=== PATIENT | female | born 1980 | race Caucasian/White ===

== ENCOUNTER 2020-08-25 19:23 | Emergency (ER) | payer OTHER, SELFPAY ==
[2020-08-25 19:37] VITALS: BP 159/87; PULSE 85; RESP 16; TEMP 36.3; O2SAT 100; BMI 49.6
[2020-08-25 21:04] VITALS: PULSE 82; RESP 24; O2SAT 98
[2020-08-25] MEDS: MECLIZINE HCL 12.5 MG TABLET 25 MG PO (21:07)
[2020-08-25] MEDS: SODIUM CHLORIDE 0.9% 1,000 ML 1000 ML IV (21:07)
[2020-08-25 21:22] LABS: Alanine Aminotransferase 34 IU/L (<35); Albumin 4.2 g/dL (3.5-5.0); Albumin Globulin Ratio 1.2 (1.0-2.8); Alkaline Phosphatase 92 U/L (38-126); Aspartate Aminotransferase 28 IU/L (14-36); BUN Creatinine Ratio 28.3 (6-22); Bilirubin Total 0.3 mg/dL (0.2-1.3); Blood Urea Nitrogen 17 mg/dL (7-17); Calcium 9.8 mg/dL (8.4-10.2); Carbon Dioxide 25 mmol/L (22-32); Chloride 108 mmol/L (98-107); Estimated Glomerular Filt Rate > 60.0 mL/min (>60); Globulin 3.4 g/dL (1.7-4.1); Glucose 106 mg/dL (70-100); HEMOLYSIS 20 (0-50); Sodium 140 mmol/L (137-145); Total Protein 7.6 g/dL (6.3-8.2)
[2020-08-25 21:30] VITALS: BP 131/63; PULSE 79; RESP 25
[2020-08-25 21:37] LABS: Add Manual Diff / Slide Review NO; Basophils Absolute Auto 0 /uL (0-100); Basophils Percent Auto 0.4 % (0-2); Eosinophils Absolute Auto 300 /uL (0-450); Eosinophils Percent Auto 3.8 % (2-4); Hematocrit 38.5 % (36-46); Hemoglobin 12.8 g/dL (12.0-16.0); Lymphocytes Absolute Auto 2900 /uL (1100-4500); Lymphocytes Percent Auto 32.4 % (25-40); Mean Corpuscular HGB Conc 33.1 % (30-36); Mean Corpuscular Hemoglobin 29.4 PG (26-34); Mean Corpuscular Volume 88.7 fL (80-100); Monocytes Absolute Auto 800 /uL (0-900); Monocytes Percent Auto 8.5 % (3-14); Neutrophils Absolute Auto 4900 /uL (1500-7000); Neutrophils Percent Auto 54.9 % (50-75); Platelet Count 304 X10^3/uL (150-400); Red Blood Cell Count 4.34 X10^6/uL (4.0-5.2); Red Cell Distribution Width 13.4 % (11.6-14.8); White Blood Cell Count 8.9 X10^3/uL (4.5-11.0)
--- NOTE | 2020-08-25 23:39 | ED_ITS ---
HPI - General Adult General Chief complaint: Dizziness Stated complaint: dizziness past week Time Seen by Provider: 08/25/20 20:53 History of Present Illness HPI narrative: 39-year-old woman with a history of alcohol use disorder, history of seizures currently complains of vertigo when turning her head. This has been bothering her all week seems like it is worse at work or when there is more lytes or distractions. Bothers her when she is driving. She feels almost like she is going to pass out or fall when it happens. She does describe some blurry vision that then resolves. It has been waxing and waning and was worse overall today. Prior workup with the seizure history apparently included neurology and Cardiology consultations. When they were unable to cause induced seizures the recommendation was to not continue with any seizure medications. Related Data Home Medications Medication Instructions Recorded Confirmed loratadine-pseudoephedrine 1 tab PO Q12H PRN 08/25/20 08/25/20 [Allergy Relief-D (loratadine)] oxycodone-acetaminophen 1 tab PO Q6HR PRN 08/25/20 08/25/20 Allergies Allergy/AdvReac Type Severity Reaction Status Date / Time From VICODIN AdvReac Mild HEADACHE Uncoded 08/25/20 20:47 Review of Systems Review of Systems Narrative: Pertinent positive and negative findings as per HPI Remainder of review of systems is otherwise unremarkable for Constitutional: Fevers, chills, weakness ENT: No sore throat, neck pain, ear pain CV: Chest pain, palpitations, dyspnea on exertion Respiratory: Cough, wheeze, dyspnea GI: vomiting, diarrhea MS: Muscle weakness, numbness, Patient History Medical History (Updated 08/26/20 @ 00:01 by Vickie Lutz MD) Seizures Exam Narrative Exam Narrative: General: Morbidly obese but otherwise Healthy appearing, in no acute distress. Able to give a complete and coherent history. HEENT: Moist mucous membranes, normal sclera with reactive pupils, no nystagmus with positional changes Respiratory: Lungs are clear to auscultation, no wheezing no rales no rhonchi. Full and symmetrical air movement Cardiac: Regular rate and rhythm no murmurs no bruits Abdomen: Soft, nontender, good bowel tones, no flank pain Skin: Warm and dry, no rashes Neurologic: Grossly neurologically intact with no obvious asymmetries or abnormalities Extremities: No trauma, well perfused Psych: Cooperative, appropriate insight and affect Initial Vital Signs Initial Vital Signs: Vital Signs Temperature 97.4 F L 08/25/20 19:37 Pulse Rate 85 08/25/20 19:37 Respiratory Rate 16 08/25/20 19:37 Blood Pressure 159/87 H 08/25/20 19:37 Pulse Oximetry 100 08/25/20 19:37 Course Orders Ordered: ED Orders 08/25/20 20:55 Comprehensive Metabolic Panel Stat 08/25/20 21:25 Complete Blood Count AUTO DIFF Stat Discontinued Medications Sodium Chloride (Normal Saline 0.9%) 1,000 mls @ 1,000 mls/hr IV BOLUS ONE Stop: 08/25/20 21:59 Last Infusion: 08/25/20 22:08 Dose: 0 mls/hr Documented by: Admin: 08/25/20 21:07 Dose: 1,000 mls/hr Documented by: MILADY Meclizine HCl (Meclizine Hcl 12.5 Mg Tablet) 25 mg PO NOW ONE Stop: 08/25/20 21:02 Last Admin: 08/25/20 21:07 Dose: 25 mg Documented by: MILADY Vital Signs Vital signs: Vital Signs - 8 hr 08/25/20 19:37 08/25/20 21:04 08/25/20 21:30 Temperature 97.4 F L Pulse Rate 85 82 79 Respiratory Rate 16 24 25 H Blood Pressure 159/87 H 131/63 Pulse Oximetry 100 98 Medical Decision Making Medical Records Medical records reviewed: Yes I reviewed the patient's medical records. Lab Data Lab results reviewed: Yes I reviewed the patient's lab results. Result diagrams: 08/25/20 21:25 08/25/20 20:55 Labs: Lab Results 08/25/20 08/25/20 Range/Units 20:55 21:25 WBC 8.9 (4.5-11.0) X10^3/uL RBC 4.34 (4.0-5.2) X10^6/uL Hgb 12.8 (12.0-16.0) g/dL Hct 38.5 (36-46) % MCV 88.7 (80-100) fL MCH 29.4 (26-34) PG MCHC 33.1 (30-36) % RDW 13.4 (11.6-14.8) % Plt Count 304 (150-400) X10^3/uL Neut % (Auto) 54.9 (50-75) % Lymph % (Auto) 32.4 (25-40) % [place] % (Auto) 8.5 (3-14) % Eos % (Auto) 3.8 (2-4) % Baso % (Auto) 0.4 (0-2) % Neut # (Auto) 4900 (6827-6135) /uL Lymph # (Auto) 2900 (0621-9462) /uL [place] # (Auto) 800 (0-900) /uL Eos # (Auto) 300 (0-450) /uL Baso # (Auto) 0 (0-100) /uL Sodium 140 (137-145) mmol/L Potassium 4.0 (3.4-5.1) mmol/L Chloride 108 H (98-107) mmol/L Carbon Dioxide 25 (22-32) mmol/L BUN 17 (7-17) mg/dL Creatinine 0.60 (0.52-1.04) mg/dL Estimated GFR > 60.0 (>60) mL/min BUN/Creatinine Ratio 28.3 H (6-22) Glucose 106 H (70-100) mg/dL Calcium 9.8 (8.4-10.2) mg/dL Total Bilirubin 0.3 (0.2-1.3) mg/dL AST 28 (14-36) IU/L ALT 34 (<35) IU/L Alkaline Phosphatase 92 (38-126) U/L Total Protein 7.6 (6.3-8.2) g/dL Albumin 4.2 (3.5-5.0) g/dL Globulin 3.4 (1.7-4.1) g/dL Albumin/Globulin Ratio 1.2 (1.0-2.8) Point of Care Testing Test Results Negative Urine Dip Bedside Urine Glucose Negative Bedside Urine Bilirubin - Negative Bedside Urine Ketone - Negative Urine Specific [place] 1.030 Bedside Urine Occult Blood - Negative Bedside Urine pH 6.0 Bedside Urine Protein - Negative Bedside Urine Urobilinogen - Negative Bedside Urine Nitrite - Negative Bedside Urine Leukocytes - Negative Esterase Point of care testing: Point of Care Testing Test Results Negative Urine Dip Bedside Urine Glucose Negative Bedside Urine Bilirubin - Negative Bedside Urine Ketone - Negative Urine Specific [place] 1.030 Bedside Urine Occult Blood - Negative Bedside Urine pH 6.0 Bedside Urine Protein - Negative Bedside Urine Urobilinogen - Negative Bedside Urine Nitrite - Negative Bedside Urine Leukocytes - Negative Esterase MDM Narrative Medical decision making narrative: 39-year-old woman with a week of dizziness and near syncopal feeling. Approximately 6 years ago had similar complaints and did have seizures at that time. Remaining workup then was unremarkable. She describes no recent viral illnesses is not currently orthostatic and labs are reassuring we normal. She does complain of vertigo with extreme right lateral gaze but does not have nystagmus with this. Slightly improved with a L of fluid and oral meclizine. No signs of stroke, infection, other acute neurologic abnormalities and no orthostasis or cardiac arrhythmias. At this point she is safe for home discharge and I will recommend that she follow-up with her primary care physician Discharge Plan Departure Patient Disposition: Home Clinical Impression: Dizziness Benign paroxysmal positional vertigo Qualifiers: Laterality: right Qualified Code(s): H81.11 - Benign paroxysmal vertigo, right ear Instructions: DI for Benign Paroxysmal Positional Vertigo, DI for Dizziness- Nonvertigo Activity Restrictions/Additional Instructions: Thank you for coming in today I did not find a clear explanation to explain her dizziness and your lab work was very reassuring. I have given you instructions on both benign positional vertigo as well as regular dizziness. With the dizziness worse when you are looking directly to 1 side the possibility of benign positional vertigo is higher, however, you did not have the classic eye findings that we frequently see with this. I am not seeing any evidence of kidney failure, dehydration or orthostatic hypotension. Please follow-up with your primary care physician if your symptoms are not improving within the next day or 2. Prescriptions: No Action oxycodone-acetaminophen 5-325 mg tablet 1 tab PO Q6HR PRN (Reason: Pain (Scale Score 7-10)) RF: 0 Allergy Relief-D (loratadine) 5-120 mg Tablet Extended Release 12 Hr 1 tab PO Q12H PRN (Reason: allergies) RF: 0 Referrals: Mojgan Reyes [Primary Care Provider] - Stand Alone Forms: Work Release Note
[2020-08-26 00:10] VITALS: BP 130/70; PULSE 85; RESP 14; O2SAT 96
== END 2020-08-26 00:11 | disposition home or self-care (01) ==
PROVIDERS: Emergency Provider Emergency Medicine; PCP Physician Assistant Medical
DX: H81.11 Benign paroxysmal vertigo, right ear (principal)
CPT/HCPCS: 36415; 80053; 81003; 81025; 85025; 96360; 99284

== ENCOUNTER 2024-07-01 12:02 | Emergency (ER) | payer OTHER, SELFPAY ==
[2024-07-01] VITALS (7 sets, daily range): BP systolic 135–158; BP diastolic 67–91; PULSE 89–109; RESP 15; TEMP 36.1; O2SAT 95–98; BMI 48.4
--- NOTE | 2024-07-01 12:14 | ED.ABDPAIN ---
HPI - Abdominal Pain General Chief Complaint: Abdominal Pain Stated Complaint: rt side px Time Seen by Provider: 07/01/24 12:14 Mode of arrival: Ambulatory History of Present Illness HPI narrative: 43-year-old female without any significant past medical history presents to the ED from home for evaluation of right-sided flank pain ongoing persistent for the past 36 hours, states it is similar to the history of nephrolithiasis last 1 was approximately 3 years ago. States has had some nausea and vomiting associated with the pain. Denies any trauma or falls denies any other symptoms at this time. Related Data Home Medications Medication Instructions Recorded Confirmed loratadine 5 mg-pseudoephedrine ER 1 tab PO Q12H PRN allergies 08/25/20 08/25/20 120 mg tablet,extended release,12hr (Allergy Relief-D (loratadine)) oxycodone-acetaminophen 5 mg-325 1 tab PO Q6HR PRN Pain (Scale 08/25/20 08/25/20 mg tablet Score 7-10) Previous Rx's Medication Instructions Recorded cyclobenzaprine 10 mg tablet 10 mg PO BEDTIME PRN muscle spasm 07/01/24 1 week #7 tabs Allergies Allergy/AdvReac Type Severity Reaction Status Date / Time acetaminophen [From Vicodin] Allergy Verified 07/01/24 12:05 hydrocodone [From Vicodin] Allergy Verified 07/01/24 12:05 Review of Systems Review of Systems Narrative: General: Denies fever, chills, weight loss HEENT: Denies headache, eye drainage, eye irritation, head trauma, sore throat, voice change Cardiovascular: Denies any chest pain, palpitations, shortness of breath, tachycardia Respiratory: Denies any shortness of breath, cough, wheeze, stridor GI/: Positive right-sided flank pain, Denies any abdominal pain, nausea, vomiting, diarrhea, bright red blood per rectum, melanotic stools, urinary frequency, urinary retention, dysuria, hematuria MSK: Denies any joint pain, muscle pains, swelling Skin: Denies any rashes, lesions, discoloration Neuro: Denies any headache, lightheadedness, dizziness, fainting, weakness Psych: Denies SI/HI Patient History Medical History (Updated 07/01/24 @ 13:36 by Ash Hale DO) Seizures Social History Smoking Status: Unknown if ever smoked Smoking Status: Unknown if ever smoked Exam Narrative Exam Narrative: General: Cooperative, comfortable, well-developed, not in acute distress HEENT: Normocephalic, atraumatic, PERRLA, normal sclera, eyelids normal, Neck: Active full range of motion, atraumatic Chest: Normal to inspection, negative crepitus, no overlying erythema ecchymosis Respiratory: Normal respiratory effort, not in acute respiratory distress, clear to auscultation bilaterally negative cough, wheeze, tachypnea, rhonchi, rales Cardiology: Regular rate rhythm negative gallop, murmur, rubs GI/: Normal to inspection, soft, nonrigid, no tenderness to palpation, exam deferred, positive right CVA tenderness MSK: Full range of active range of motion of all 4 extremities, atraumatic Skin: No rashes lesions noted Neuro: Alert awake oriented x3, moves all 4 extremities spontaneously, cranial nerves intact, able to answer all questions appropriately follows commands appropriately Psych: Cooperative, negative suicidal or homicidal ideations Initial Vital Signs Initial Vital Signs: Vital Signs Temperature 97.0 F L 07/01/24 12:05 Pulse Rate 105 H 07/01/24 12:05 Respiratory Rate 15 07/01/24 12:05 Blood Pressure 158/91 H 07/01/24 12:05 Pulse Oximetry 95 07/01/24 12:05 Oxygen Delivery Method Room Air 07/01/24 12:05 Course Orders Ordered: ED Orders 07/01/24 12:15 Ictotest Urine Stat Urine Culture Stat Urine Microscopic Stat 07/01/24 12:21 CT kidney ureter bladder (KUB) Stat 07/01/24 12:25 Complete Blood Count AUTO DIFF Stat Comprehensive Metabolic Panel Stat Lipase Stat MAG [Magnesium] Stat Ondansetron HCl (Ondansetron 4 Mg/2 Ml Inj) 4 mg IV NOW PRN PRN Reason: Nausea And Vomiting Last Admin: 07/01/24 12:39 Dose: 4 mg Documented By: RAFAEL Ondansetron HCl (Ondansetron 4 Mg Odt) 4 mg PO NOW PRN PRN Reason: Nausea And Vomiting Discontinued Medications Ketorolac Tromethamine (Ketorolac 30 Mg/Ml Vial) 15 mg IM NOW ONE Stop: 07/01/24 12:22 Last Admin: 07/01/24 12:39 Dose: 15 mg Documented By: ES Morphine Sulfate (Morphine 4 Mg/Ml Inj) 4 mg IV NOW ONE Stop: 07/01/24 13:36 Ondansetron HCl (Ondansetron 4 Mg/2 Ml Inj) 4 mg IV NOW ONE Stop: 07/01/24 13:36 Vital Signs Vital signs: Vital Signs - 8 hr 07/01/24 12:05 Temperature 97.0 F L Pulse Rate 105 H Respiratory Rate 15 Blood Pressure 158/91 H Pulse Oximetry 95 Oxygen Delivery Method Room Air MDM - Abdominal Pain Differential Diagnosis Differential diagnosis: Likely abdominal pain, calculus of kidney and other (Pyelonephritis, urinary tract infection) Lab Data 07/01/24 12:25 07/01/24 12:25 Labs: Lab Results 07/01/24 07/01/24 Range/Units 12:15 12:25 WBC 11.6 H (4.5-11.0) X10^3/uL RBC 5.38 H (4.0-5.2) X10^6/uL Hgb 16.2 H (12.0-16.0) g/dL Hct 48.9 H (36-46) % MCV 90.9 (80-100) fL MCH 30.2 (26-34) PG MCHC 33.2 (30-36) % RDW 13.6 (11.6-14.8) % Plt Count 280 (150-400) X10^3/uL Neut % (Auto) 89.9 H (50-75) % Lymph % (Auto) 5.5 L (25-40) % [place] % (Auto) 3.8 (3-14) % Eos % (Auto) 0.5 L (2-4) % Baso % (Auto) 0.3 (0-2) % Neut # (Auto) 56402 H (9297-1616) /uL Lymph # (Auto) 600 L (7443-3081) /uL [place] # (Auto) 400 (0-900) /uL Eos # (Auto) 100 (0-450) /uL Baso # (Auto) 0 (0-100) /uL Sodium 137 (137-145) mmol/L Potassium 3.7 (3.4-5.1) mmol/L Chloride 104 (98-107) mmol/L Carbon Dioxide 22 (22-32) mmol/L BUN 17 (7-17) mg/dL Creatinine 0.71 (0.52-1.04) mg/dL Estimated GFR > 60 (>60) mL/min BUN/Creatinine Ratio 23.9 H (6-22) Glucose 122 H (70-100) mg/dL Calcium 9.2 (8.4-10.2) mg/dL Magnesium 1.8 (1.6-2.3) mg/dL Total Bilirubin 0.9 (0.2-1.3) mg/dL AST 39 H (14-36) IU/L ALT 40 H (<35) IU/L Alkaline Phosphatase 58 (38-126) U/L Total Protein 8.1 (6.3-8.2) g/dL Albumin 4.5 (3.5-5.0) g/dL Globulin 3.6 (1.7-4.1) g/dL Albumin/Globulin Ratio 1.3 (1.0-2.8) Lipase 40 (23-300) U/L Ur Bilirubin Confirm Negative (Negative) Urine RBC 0-1/hpf (0-5/HPF) Urine WBC 1-5/hpf (0-5/HPF) Ur Squamous Epith Cells None seen (0-5/HPF) Urine Bacteria None seen (None) Urine Mucus 1+ H (Negative) Ur Culture Indicated? Specimen cultured Vol Urine Centrifuged 10ml (spun) Point of care testing: Urine Dip Bedside Urine Glucose 100 mg/dl Bedside Urine Bilirubin + 1 Bedside Urine Ketone - Negative Urine Specific [place] 1.015 Bedside Urine Occult Blood - Negative Bedside Urine pH 6.0 Bedside Urine Protein +/- 15 Bedside Urine Urobilinogen - Negative Bedside Urine Nitrite - Negative Bedside Urine Leukocytes +/- [address] KUB: Radiologist's Impression: [address] [address] [address] Scan Report Signed Patient: Sarah Brown MR#: [id number] : 1980 Acct:[id number] Age/Sex: 43 / F Date of Service: 07/01/24 Loc: ED Accession Number: [id number] Procedure: CT kidney ureter bladder (KUB) Ordering Provider: Ash Hale D.O. PROCEDURE: CT KIDNEY URETER BLADDER (KUB) INDICATIONS: rt flank pain TECHNIQUE: Axial sections were acquired from the lung bases to the pubic symphysis. Coronal and sagittal reformats were performed. For radiation dose reduction, the following was used: automated exposure control, adjustment of mA and/or kV according to patient size. COMPARISON: None. FINDINGS: Image quality: Diagnostic. Lower Chest: Small fat containing posterior left diaphragmatic hernia. Lung bases are clear. URINARY: Kidneys and ureters: Punctate 1-2 mm nonobstructing renal calculi bilaterally. No hydronephrosis. No ureteral calculus is seen. Bladder: Normal wall thickness. No stones. ABDOMEN: Liver: No contour-deforming solid mass. Gallbladder: Status post cholecystectomy. Biliary ducts: No biliary dilation. Pancreas: No ductal dilation. Spleen: Size is within normal limits. Adrenal Glands: No adrenal nodules. Stomach and Bowel: Normal colonic caliber, without significant wall thickening. Peritoneum: No abnormal intraperitoneal fluid. No free air. Ventral Wall: Small fat containing supraumbilical ventral hernia. Abdominal Nodes: No enlarged retroperitoneal or mesenteric lymph nodes. Vessels: Aorta and inferior vena cava are normal in size. PELVIS: Pelvic Organs: Status post hysterectomy. No suspicious adnexal mass. Pelvic Nodes: Unremarkable. Miscellaneous: No inguinal hernias are seen. Bones: Mild sclerosis of the left greater than right pubic symphysis suspicious for osteitis pubis versus degenerative subchondral sclerosis. Degenerative changes are seen in the bilateral sacroiliac joints with mild adjacent sclerosis. IMPRESSION: Tiny 1-2 mm bilateral renal calculi. No obstructing calculus or hydronephrosis. MDM Narrative Medical decision making narrative: 43-year-old female history of nephrolithiasis presents for evaluation of right-sided flank pain started proximally day and a half ago describes it as similar to history of. Patient is status post bilateral oophorectomy. Patient had lab work imaging urinalysis performed here in the emergency department CT scan showing renal nephrolithiasis without urolithiasis, urinalysis not consistent with acute urinary tract infection, lab work without any significantly acute changes noted mild leukocytosis at 11.6, however patient has been complaining of diarrhea symptoms so most likely elevated secondary to this. Patient's symptoms more likely secondary to gastroenteritis versus musculoskeletal lumbar strain/pain, patient was instructed follow up with PCP urology in outpatient setting strict return precautions were given verbalized understanding of this and agrees to being discharged home with outpatient follow up Discharge Plan Departure Patient Disposition: Home Clinical Impression: Lumbar back pain Activity Restrictions/Additional Instructions: Please follow up with PCP and Urology in outpatient setting Please read the discharge instructions sheet carefully and bring all papers to all doctor follow-up visits, as it may contain information that your doctor may want to see. Disease processes change and evolve, if your symptoms worsen or if you develop any new symptoms that are concerning to you please return for evaluation. Your evaluation today does not show any evidence of any life-threatening/serious illnesses requiring admission to the hospital or surgery. Please follow-up with your doctor for re-evaluation in approximately 1 day. Seek immediate medical attention for any worrisome symptoms. *If you do not have a primary care provider please contact the [facility] Resource line at [phone]. They will ask some questions about your medical history and help get you set up with a doctor in the community. Prescriptions: New cyclobenzaprine 10 mg tablet 10 mg PO BEDTIME PRN (Reason: muscle spasm) 7 Days Qty: 7 0RF No Action oxycodone-acetaminophen 5-325 mg tablet 1 tab PO Q6HR PRN (Reason: Pain (Scale Score 7-10)) Patient Comments: TAKE 1 TABLET BY MOUTH EVERY 6 HOURS NEEDED Allergy Relief-D (loratadine) 5-120 mg Tablet Extended Release 12 Hr 1 tab PO Q12H PRN (Reason: allergies) Referrals: Steven Rod DO [Physician] - Mojgan Reyes [Primary Care Provider] - Stand Alone Forms: Patient Portal/API/Survey
--- NOTE | 2024-07-01 12:21 | DI.CT.S_ITS ---
PROCEDURE: CT KIDNEY URETER BLADDER (KUB) INDICATIONS: rt flank pain TECHNIQUE: Axial sections were acquired from the lung bases to the pubic symphysis. Coronal and sagittal reformats were performed. For radiation dose reduction, the following was used: automated exposure control, adjustment of mA and/or kV according to patient size. COMPARISON: None. FINDINGS: Image quality: Diagnostic. Lower Chest: Small fat containing posterior left diaphragmatic hernia. Lung bases are clear. URINARY: Kidneys and ureters: Punctate 1-2 mm nonobstructing renal calculi bilaterally. No hydronephrosis. No ureteral calculus is seen. Bladder: Normal wall thickness. No stones. ABDOMEN: Liver: No contour-deforming solid mass. Gallbladder: Status post cholecystectomy. Biliary ducts: No biliary dilation. Pancreas: No ductal dilation. Spleen: Size is within normal limits. Adrenal Glands: No adrenal nodules. Stomach and Bowel: Normal colonic caliber, without significant wall thickening. Peritoneum: No abnormal intraperitoneal fluid. No free air. Ventral Wall: Small fat containing supraumbilical ventral hernia. Abdominal Nodes: No enlarged retroperitoneal or mesenteric lymph nodes. Vessels: Aorta and inferior vena cava are normal in size. PELVIS: Pelvic Organs: Status post hysterectomy. No suspicious adnexal mass. Pelvic Nodes: Unremarkable. Miscellaneous: No inguinal hernias are seen. Bones: Mild sclerosis of the left greater than right pubic symphysis suspicious for osteitis pubis versus degenerative subchondral sclerosis. Degenerative changes are seen in the bilateral sacroiliac joints with mild adjacent sclerosis. IMPRESSION: Tiny 1-2 mm bilateral renal calculi. No obstructing calculus or hydronephrosis. Approved by: Omkar Cardenas M.D. on 07/01/2024 at 13:07
[2024-07-01 12:35] LABS: Add Manual Diff / Slide Review NO; Basophils Absolute Auto 0 /uL (0-100); Basophils Percent Auto 0.3 % (0-2); Eosinophils Absolute Auto 100 /uL (0-450); Eosinophils Percent Auto 0.5 % (2-4); Hematocrit 48.9 % (36-46); Hemoglobin 16.2 g/dL (12.0-16.0); Lymphocytes Absolute Auto 600 /uL (1100-4500); Lymphocytes Percent Auto 5.5 % (25-40); Mean Corpuscular HGB Conc 33.2 % (30-36); Mean Corpuscular Hemoglobin 30.2 PG (26-34); Mean Corpuscular Volume 90.9 fL (80-100); Monocytes Absolute Auto 400 /uL (0-900); Monocytes Percent Auto 3.8 % (3-14); Neutrophils Absolute Auto 10400 /uL (1500-7000); Neutrophils Percent Auto 89.9 % (50-75); Platelet Count 280 X10^3/uL (150-400); Red Blood Cell Count 5.38 X10^6/uL (4.0-5.2); Red Cell Distribution Width 13.6 % (11.6-14.8); White Blood Cell Count 11.6 X10^3/uL (4.5-11.0)
[2024-07-01] MEDS: ONDANSETRON 4 MG/2 ML INJ IV ×2 (12:39→13:50)
[2024-07-01] MEDS: KETOROLAC 30 MG/ML VIAL 15 MG IM (12:39)
[2024-07-01 12:40] LABS: Ictotest Urine Negative (Negative); Urine Volume 10mL (spun)
[2024-07-01 12:42] LABS: Bacteria Urine None Seen; Culture Indicated Urine Specimen Cultured; Mucus Urine 1+ (Negative); RBC Urine 0-1/HPF (0-5/HPF); Squamous Epithelial Cell Urine None Seen (0-5/HPF); WBC Urine 1-5/HPF (0-5/HPF)
[2024-07-01 12:45] LABS: Alanine Aminotransferase 40 IU/L (<35); Albumin 4.5 g/dL (3.5-5.0); Albumin Globulin Ratio 1.3 (1.0-2.8); Alkaline Phosphatase 58 U/L (38-126); Aspartate Aminotransferase 39 IU/L (14-36); BUN Creatinine Ratio 23.9 (6-22); Bilirubin Total 0.9 mg/dL (0.2-1.3); Blood Urea Nitrogen 17 mg/dL (7-17); Calcium 9.2 mg/dL (8.4-10.2); Carbon Dioxide 22 mmol/L (22-32); Chloride 104 mmol/L (98-107); Estimated Glomerular Filt Rate > 60 mL/min (>60); Globulin 3.6 g/dL (1.7-4.1); Glucose 122 mg/dL (70-100); HEMOLYSIS < 15 (0-50); Lipase 40 U/L (23-300); Potassium 3.7 mmol/L (3.4-5.1); Sodium 137 mmol/L (137-145); Total Protein 8.1 g/dL (6.3-8.2)
[2024-07-01 12:46] LABS: Magnesium 1.8 mg/dL (1.6-2.3)
[2024-07-01] MEDS: MORPHINE 4 MG/ML INJ IV (13:50)
== END 2024-07-01 14:14 | disposition home or self-care (01) ==
PROVIDERS: Emergency Provider Student in an Organized Health Care Education/Training Program; PCP Physician Assistant Medical
DX: M54.50 Low back pain, unspecified (principal); Z87.442 Personal history of urinary calculi
CPT/HCPCS: 36415; 74176; 80053; 81003; 81015; 83690; 83735; 85025; 87086; 96372; 96374; 96375; 96376; 99284; J1885; J2270; J2405